=== PATIENT | male | born 1980 | race Caucasian/White ===

== ENCOUNTER 2019-01-06 01:38 | Emergency (ER) | payer OTHER ==
[2019-01-06] MEDS ORDERED: Sodium Chloride 0.9% 10 ML Syringe FLUSH PRN ×2 (02:15→02:42)
[2019-01-06] MEDS ORDERED: Ondansetron 4 MG/2 ML SDV IVPUSH ONE (02:16)
[2019-01-06] MEDS ORDERED: HYDROmorphone 1 MG/ML Syringe IVPUSH ONE ×2 (02:16→04:55)
[2019-01-06] MEDS ORDERED: LORazepam 2 MG/ML SDV IVPUSH ONE (02:41)
[2019-01-06] MEDS ORDERED: Iopamidol 612 MG/ML 100 ML Bottle IV PRN (02:42)
--- NOTE | 2019-01-06 03:39 | CRLCT ---
INDICATION: Acute abdominal pain TECHNIQUE: CT abdomen and pelvis acquired with 100 cc Isovue-300 IV contrast. COMPARISON: None FINDINGS: Lower chest: Unremarkable. Liver: Hepatic steatosis. The liver measures 18.6 cm in length Spleen: Unremarkable. Pancreas: Small amount of fat stranding around the pancreatic head. The pancreatic head appears mildly edematous. No peripancreatic fluid collection. Gallbladder and bile ducts: Unremarkable. Adrenal glands: Unremarkable. Kidneys: Unremarkable. GI tract: Small amount of fluid around the C-loop of the duodenum. No extraluminal air. Vascular structures: Unremarkable. Lymph nodes: Unremarkable. Pelvic Organs: Unremarkable. Bones: Unremarkable for age. IMPRESSION: Mild edema in the pancreatic head with surrounding peripancreatic stranding concerning for acute pancreatitis. No peripancreatic fluid collection. There is a small amount of fluid around the C-loop of the duodenum which is likely reactive. Hepatic steatosis and mild hepatomegaly. Please note that all CT scans at this facility use dose modulation, iterative reconstruction, and/or weight-based dosing when appropriate to reduce radiation dose to as low as reasonably achievable. Dictated by Kisha Ojeda MD @ Jan 06 2019 3:32AM Signed by Dr. Kisha Ojeda @ Jan 06 2019 3:37AM
--- NOTE | 2019-01-06 05:21 | EDM.PDOC ---
ED HPI GENERAL MEDICAL PROBLEM - General Chief Complaint: Abdominal Pain Stated Complaint: SEVERE ABD PAIN Time Seen by Provider: 01/06/19 02:14 Source of Information: Reports: Patient History Limitations: Reports: No Limitations - History of Present Illness INITIAL COMMENTS - FREE TEXT/NARRATIVE: This gentleman arrived by private vehicle complaining of acute abdominal pain. He described the pain is mostly epigastric began about 5 PM today. It's sort of the dome both sides the abdomen. There's been no vomiting. He has had little bit of diarrhea for a couple of days no blood no fever he has about 10 drinks per day. Abdomen Pain Score (Numeric/FACES): 6 - Related Data Allergies Allergy/AdvReac Type Severity Reaction Status Date / Time No Known Allergies Allergy Verified 01/06/19 01:56 Home Meds: Home Meds NK [No Known Home Meds] 01/06/19 [History] Past Medical History - Past Health History Medical/Surgical History: Denies Medical/Surgical History Social & Family History - Tobacco Use Smoking Status *Q: Current Every Day Smoker Years of Tobacco use: 25 Packs/Tins Daily: 0.5 - Caffeine Use Caffeine Use: Reports: Energy Drinks - Alcohol Use Days Per Week of Alcohol Use: 7 Number of Drinks Per Day: 6 Total Drinks Per Week: 42 Date of Last Drink: 01/05/19 Time of Last Drink: 19:00 - Recreational Drug Use Recreational Drug Use: No ED ROS GENERAL - Review of Systems Review Of Systems: See Below Constitutional: Reports: No Symptoms HEENT: Reports: No Symptoms Respiratory: Reports: No Symptoms Cardiovascular: Reports: No Symptoms Endocrine: Reports: No Symptoms GI/Abdominal: Reports: Abdominal Pain, Vomiting : Reports: No Symptoms Musculoskeletal: Reports: No Symptoms Skin: Reports: No Symptoms Neurological: Reports: No Symptoms Psychiatric: Reports: No Symptoms Hematologic/Lymphatic: Reports: No Symptoms ED EXAM, GI/ABD - Physical Exam Exam: See Below Exam Limited By: No Limitations General Appearance: Alert, WD/WN, Moderate Distress, Other (Tremulous) Eyes: Bilateral: Normal Appearance Ears: Normal External Exam Nose: Normal Inspection Throat/Mouth: Normal Oropharynx Head: Atraumatic Neck: Normal Inspection Respiratory/Chest: Lungs Clear Cardiovascular: Regular Rate, Rhythm, No Murmur GI/Abdominal Exam: Normal Bowel Sounds, Soft, Tender (Tender mostly in the epigastric area) Back Exam: Normal Inspection Extremities: Normal Inspection Neurological: Alert, Oriented, CN II-XII Intact, Normal Cognition, Other ( Tremulous) Psychiatric: Normal Affect, Normal Mood Skin Exam: Warm, Dry, Intact Course - Vital Signs Last Recorded V/S: Last Vital Signs Temp 36.3 C 01/06/19 01:54 Pulse 86 01/06/19 04:27 Resp 16 01/06/19 04:27 BP 129/85 01/06/19 04:27 Pulse Ox 95 01/06/19 04:27 - Orders/Labs/Meds Orders: Active Orders 24 hr Category Date Time Status Dextrose 5%-0.9% NaCl with KCl [D5 NS with 20 mEq KCl] Med 01/06/19 05:30 Ordered 1,000 ml IV ASDIRECTED Iopamidol [Isovue-300 (61%)] Med 01/06/19 02:42 Active 100 ml IV . DIRECTED PRN Sodium Chloride 0.9% [Normal Saline] 70 ml Med 01/06/19 02:45 Active IV ASDIRECTED Sodium Chloride 0.9% [Saline Flush] Med 01/06/19 02:15 Active 10 ml FLUSH ASDIRECTED PRN Sodium Chloride 0.9% [Saline Flush] Med 01/06/19 02:42 Active 10 ml FLUSH ONETIME PRN Saline Lock Insert [OM.PC] Urgent Oth 01/06/19 02:15 Ordered Medication Orders Sodium Chloride (Normal Saline) 70 mls @ 3 mls/sec IV ASDIRECTED SHAJI Last Admin: 01/06/19 03:05 Dose: 3 mls/sec Iopamidol (Isovue-300 (61%)) 100 ml IV . DIRECTED PRN PRN Reason: RADIOLOGY EXAM Stop: 01/07/19 02:43 Last Admin: 01/06/19 03:05 Dose: 100 ml Sodium Chloride (Saline Flush) 10 ml FLUSH ASDIRECTED PRN PRN Reason: Keep Vein Open Last Admin: 01/06/19 03:55 Dose: 10 ml Sodium Chloride (Saline Flush) 10 ml FLUSH ONETIME PRN PRN Reason: per radiology protocol Last Admin: 01/06/19 03:03 Dose: 10 ml Labs: Laboratory Tests 01/06/19 01/06/19 01/06/19 Range/Units 02:15 02:15 02:20 WBC 11.6 H (4.5-11.0) K/uL RBC 4.78 (4.30-5.90) M/uL Hgb 16.9 H (12.0-15.0) g/dL Hct 48.8 (40.0-54.0) % MCV 102 H (80-98) fL MCH 35 H (27-31) pg MCHC 35 (32-36) % Plt Count 168 (150-400) K/uL Neut % (Auto) 78 H (36-66) % Lymph % (Auto) 9 L (24-44) % [place] % (Auto) 13 H (2-6) % Eos % (Auto) 0 L (2-4) % Baso % (Auto) 0 (0-1) % Sodium 134 L (140-148) mmol/L Potassium 3.3 L (3.6-5.2) mmol/L Chloride 94 L (100-108) mmol/L Carbon Dioxide 28 (21-32) mmol/L Anion Gap 15.3 H (5.0-14.0) mmol/L BUN 5 L D (7-18) mg/dL Creatinine 0.8 (0.8-1.3) mg/dL Est Cr Clr Drug Dosing 121.53 mL/min Estimated GFR (MDRD) > 60 (>60) Glucose 109 H (74-106) mg/dL Calcium 9.2 (8.5-10.1) mg/dL Total Bilirubin 1.6 H (0.2-1.0) mg/dL AST 410 H (15-37) U/L ALT 376 H (12-78) U/L Alkaline Phosphatase 139 H (46-116) U/L Total Protein 7.4 (6.4-8.2) g/dL Albumin 3.7 (3.4-5.0) g/dL Globulin 3.7 H (2.3-3.5) g/dL Albumin/Globulin Ratio 1.0 L (1.2-2.2) Amylase 141 H (25-115) U/L Lipase 3038 H (73-393) U/L Urine Color (YELLOW) Urine Appearance (CLEAR) Urine pH (5.0-8.0) Ur Specific [place] (1.008-1.030) Urine Protein (NEGATIVE) mg/dL Urine Glucose (UA) (NEGATIVE) mg/dL Urine Ketones (NEGATIVE) mg/dL Urine Occult Blood (NEGATIVE) Urine Nitrite (NEGATIVE) Urine Bilirubin (NEGATIVE) Urine Urobilinogen (0.2-1.0) EU/dL Ur Leukocyte Esterase (NEGATIVE) Urine RBC (0-5) Urine WBC (0-5) Ur Epithelial Cells Amorphous Sediment Urine Bacteria Urine Mucus 01/06/19 Range/Units 02:41 WBC (4.5-11.0) K/uL RBC (4.30-5.90) M/uL Hgb (12.0-15.0) g/dL Hct (40.0-54.0) % MCV (80-98) fL MCH (27-31) pg MCHC (32-36) % Plt Count (150-400) K/uL Neut % (Auto) (36-66) % Lymph % (Auto) (24-44) % [place] % (Auto) (2-6) % Eos % (Auto) (2-4) % Baso % (Auto) (0-1) % Sodium (140-148) mmol/L Potassium (3.6-5.2) mmol/L Chloride (100-108) mmol/L Carbon Dioxide (21-32) mmol/L Anion Gap (5.0-14.0) mmol/L BUN (7-18) mg/dL Creatinine (0.8-1.3) mg/dL Est Cr Clr Drug Dosing mL/min Estimated GFR (MDRD) (>60) Glucose (74-106) mg/dL Calcium (8.5-10.1) mg/dL Total Bilirubin (0.2-1.0) mg/dL AST (15-37) U/L ALT (12-78) U/L Alkaline Phosphatase (46-116) U/L Total Protein (6.4-8.2) g/dL Albumin (3.4-5.0) g/dL Globulin (2.3-3.5) g/dL Albumin/Globulin Ratio (1.2-2.2) Amylase (25-115) U/L Lipase (73-393) U/L Urine Color Yellow (YELLOW) Urine Appearance Clear (CLEAR) Urine pH 7.0 (5.0-8.0) Ur Specific [place] 1.015 (1.008-1.030) Urine Protein Negative (NEGATIVE) mg/dL Urine Glucose (UA) Normal (NEGATIVE) mg/dL Urine Ketones Negative (NEGATIVE) mg/dL Urine Occult Blood Negative (NEGATIVE) Urine Nitrite Negative (NEGATIVE) Urine Bilirubin Negative (NEGATIVE) Urine Urobilinogen Normal (0.2-1.0) EU/dL Ur Leukocyte Esterase Negative (NEGATIVE) Urine RBC 0-5 (0-5) Urine WBC 0-5 (0-5) Ur Epithelial Cells Rare Amorphous Sediment Not seen Urine Bacteria Few Urine Mucus Not seen Meds: Medications Generic Name Dose Route Start Last Admin Trade Name Forestq PRN Reason Stop Dose Admin Sodium Chloride 70 mls @ 3 mls/sec 01/06/19 02:45 01/06/19 03:05 Normal Saline IV 3 mls/sec ASDIRECTED SHAJI Administration Iopamidol 100 ml 01/06/19 02:42 01/06/19 03:05 Isovue-300 (61%) IV 01/07/19 02:43 100 ml . DIRECTED PRN Administration RADIOLOGY EXAM Sodium Chloride 10 ml 01/06/19 02:15 01/06/19 03:55 Saline Flush FLUSH 10 ml ASDIRECTED PRN Administration Keep Vein Open Sodium Chloride 10 ml 01/06/19 02:42 01/06/19 03:03 Saline Flush FLUSH 10 ml ONETIME PRN Administration per radiology protocol Discontinued Medications Generic Name Dose Route Start Last Admin Trade Name Teddy PRN Reason Stop Dose Admin Hydromorphone HCl 1 mg 01/06/19 02:16 01/06/19 02:29 Dilaudid IVPUSH 01/06/19 02:17 1 mg ONETIME ONE Administration Hydromorphone HCl 1 mg 01/06/19 04:55 01/06/19 05:03 Dilaudid IVPUSH 01/06/19 04:56 1 mg ONETIME ONE Administration Lorazepam 2 mg 01/06/19 02:41 01/06/19 02:45 Ativan IVPUSH 01/06/19 02:42 2 mg ONETIME ONE Administration Ondansetron HCl 4 mg 01/06/19 02:16 01/06/19 02:28 Zofran IVPUSH 01/06/19 02:17 4 mg ONETIME ONE Administration - Radiology Interpretation Free Text/Narrative:: Abdominal CT shows a little bit of edema to the pancreas otherwise is normal - Re-Assessments/Exams Free Text/Narrative Re-Assessment/Exam: 01/06/19 05:20 An IV was established he was given Dilaudid 1 mg and Zofran 4 mg IV. Later he received Ativan 2 mg IV which helped a great deal with the tremulousness. He was also hydrated with IV D5 normal saline with 20 mEq per liter of KCl at 500 mL per hour. I spoke with Dr. De La Rosa at [facility] and he has accepted the patient 01/06/19 05:25 Departure - Departure Time of Disposition: 05:27 Disposition: DC/Tfer to [facility] 02 Condition: Fair Clinical Impression: Pancreatitis, Alcohol withdrawal - Discharge Information Referrals: PCP,None [Primary Care Provider] - Forms: ED Department Discharge - My Orders Last 24 Hours: My Active Orders 01/06/19 02:15 Sodium Chloride 0.9% [Saline Flush] 10 ml FLUSH ASDIRECTED PRN Saline Lock Insert [OM.PC] Urgent 01/06/19 02:42 Iopamidol [Isovue-300 (61%)] 100 ml IV . DIRECTED PRN Sodium Chloride 0.9% [Saline Flush] 10 ml FLUSH ONETIME PRN 01/06/19 02:45 Sodium Chloride 0.9% [Normal Saline] 70 ml IV ASDIRECTED 01/06/19 05:30 Dextrose 5%-0.9% NaCl with KCl [D5 NS with 20 mEq KCl] 1,000 ml IV ASDIRECTED - Assessment/Plan Last 24 Hours: My Active Orders 01/06/19 02:15 Sodium Chloride 0.9% [Saline Flush] 10 ml FLUSH ASDIRECTED PRN Saline Lock Insert [OM.PC] Urgent 01/06/19 02:42 Iopamidol [Isovue-300 (61%)] 100 ml IV . DIRECTED PRN Sodium Chloride 0.9% [Saline Flush] 10 ml FLUSH ONETIME PRN 01/06/19 02:45 Sodium Chloride 0.9% [Normal Saline] 70 ml IV ASDIRECTED 01/06/19 05:30 Dextrose 5%-0.9% NaCl with KCl [D5 NS with 20 mEq KCl] 1,000 ml IV ASDIRECTED
[2019-01-06] MEDS ORDERED: Dextrose 5%-0.9% NaCl with KCl 1,000 ML IV SCH (05:30)
== END 2019-01-06 07:40 ==
LOC: JP.ED 01:38
DX: K85.90 Acute pancreatitis without necrosis or infection, unspecified (principal); F10.239 Alcohol dependence with withdrawal, unspecified; F17.210 Nicotine dependence, cigarettes, uncomplicated
CPT/HCPCS: 36415; 74177; 80053; 81001; 82150; 83690; 85025; 96365; 96366; 96375; 96376; 99285; J1170; J2060; J2405; J3480; J7030; Q9967; 99284